=== PATIENT | male | born 1980 | race Caucasian/White ===

== ENCOUNTER 2017-03-16 06:28 | Emergency (ER) | payer OTHER ==
[2017-03-16 06:28] VITALS: BMI 25.9
[2017-03-16 07:02] VITALS: BP 127/81; PULSE 82; RESP 20; TEMP 97.8; O2SAT 97
--- NOTE | 2017-03-16 07:10 | C.PDOC ---
History Of Present Illness 36 y/o male presents to the ED with complains of runny nose, sneezing, itchy eyes, sore throat and nonproductive cough for the past few days. Pt with history of asthma, ran out of Ventolin inhaler. Pt denies SOB, fever, chest pain , vomiting, or any other complaints. Time Seen by Provider: 03/16/17 07:03 Chief Complaint (Nursing): Cough, Cold, Congestion History Per: Patient History/Exam Limitations: no limitations Onset/Duration Of Symptoms: Days Current Symptoms Are (Timing): Still Present Location Of Pain: Throat Sick Contacts (Context): None Associated Symptoms: Sore Throat, Cough. denies: Fever, Vomiting Ear Symptoms: Bilateral: None Severity: Mild Recent travel outside of the [place]: No Past Medical History Reviewed: Historical Data, Nursing Documentation, Vital Signs Vital Signs: Last Vital Signs Temp 97.8 F 03/16/17 06:37 Pulse 82 03/16/17 06:37 Resp 20 03/16/17 06:37 BP 127/81 03/16/17 06:37 Pulse Ox 97 03/16/17 07:29 - Medical History PMH: Asthma, Diverticulitis Family History: States: Unknown Family Hx - Social History Hx Alcohol Use: Yes Hx Substance Use: No - Immunization History Hx Tetanus Toxoid Vaccination: No Hx Influenza Vaccination: No Hx Pneumococcal Vaccination: No Review Of Systems Except As Marked, All Systems Reviewed And Found Negative. Constitutional: Negative for: Fever Eyes: Positive for: Other (itchy eyes) ENT: Positive for: Nose Discharge, Throat Pain, Other (sneezing). Negative for : Ear Pain Cardiovascular: Negative for: Chest Pain Respiratory: Positive for: Cough. Negative for: Shortness of Breath Gastrointestinal: Negative for: Vomiting Physical Exam - Physical Exam Appears: Non-toxic, No Acute Distress Skin: Warm, Dry, No Rash Head: Atraumatic, Normacephalic Eye(s): bilateral: Normal Inspection, PERRL, EOMI Ear(s): Bilateral: Normal Nose: Discharge (clear) Throat: Normal, No Erythema Neck: Normal, Normal ROM, Supple Chest: Symmetrical Cardiovascular: Rhythm Regular, No Murmur Respiratory: Normal Breath Sounds, No Accessory Muscle Use, No Rales, No Rhonchi , No Wheezing Extremity: Bilateral: Atraumatic Neurological/Psych: Oriented x3, Normal Speech ED Course And Treatment O2 Sat by Pulse Oximetry: 97 (room air) Pulse Ox Interpretation: Normal Medical Decision Making Medical Decision Making: Patient appears well nontoxic and in no acute distress. Lungs clear bilaterally without rales, rhonchi or wheezing. Patient has clear rhinorrhea. Symptoms related to allergic rhinitis. Recommend daily antihistamine. Disposition Counseled Patient/Family Regarding: Diagnosis, Need For Followup, Rx Given - Disposition Referrals: [facility] [Outside] [facility] [Outside] Disposition: HOME/ ROUTINE Disposition Time: 07:08 Condition: STABLE Additional Instructions: [place] por favor la medicina alrgica diaria maxx corina claritin, zyrtec o rosalina Use spray nasal todos los baer Use ventolin segn sea necesario Prescriptions: Albuterol HFA [Ventolin HFA 90 mcg/actuation (8 g)] 1 puff IH Q4 #1 puff Fluticasone Propionate [Flonase] 1 spray NS DAILY #1 bottle Instructions: Allergic Rhinitis (ED) Print Language: SETSWANA - POA Present On Arrival: None - Clinical Impression Clinical Impression: Allergic rhinitis - 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 - Scribe Statement The provider has reviewed the documentation as recorded by the Scribkurtis sainz All medical record entries made by the Scribe were at my direction and personally dictated by me. I have reviewed the chart and agree that the record accurately reflects my personal performance of the history, physical exam, medical decision making, and the department course for this patient. I have also personally directed, reviewed, and agree with the discharge instructions and disposition.
== END 2017-03-16 07:23 | disposition home or self-care (01) ==
LOC: C.ER 06:28
DX: J30.9 Allergic rhinitis, unspecified (principal)

== ENCOUNTER 2017-07-23 18:23 | Emergency (ER) | payer SELFPAY ==
[2017-07-23 18:39] VITALS: BMI 26.6
[2017-07-23 18:42] VITALS: BP 131/81; PULSE 84; TEMP 98.5; O2SAT 97
[2017-07-23] MEDS ORDERED: Albuterol-Ipratrop 3 mg / 0.5 (3 ml) UD INH STA (19:51)
[2017-07-23] MEDS ORDERED: Albuterol-Ipratrop 3 mg / 0.5 (3 ml) UD ONE (19:54)
--- NOTE | 2017-07-23 20:23 | C.PDOC ---
History Of Present Illness 36yo male with past medical history of asthma, presents to the ED for evaluation of cough, chest congestion and sore throat for the past week. Patient states he took Dayquil for his symptoms with no relief. He also states he used his albuterol inhaler with no relief; of note, patient states he has run out of his inhaler. He denies any other medical complaints. Time Seen by Provider: 07/23/17 19:36 Chief Complaint (Nursing): Cough, Cold, Congestion History Per: Patient History/Exam Limitations: no limitations Onset/Duration Of Symptoms: Days (1week) Current Symptoms Are (Timing): Still Present Location Of Pain: Throat Associated Symptoms: Sore Throat, Cough Past Medical History Reviewed: Historical Data, Nursing Documentation, Vital Signs Vital Signs: Last Vital Signs Temp 98.5 F 07/23/17 18:39 Pulse 84 07/23/17 18:39 Resp 20 07/23/17 20:28 BP 131/81 07/23/17 18:39 Pulse Ox 97 07/23/17 20:51 - Medical History PMH: Asthma, Diverticulitis Denies: Colonic Polyps Surgical History: No Surg Hx Family History: States: Unknown Family Hx - Social History Hx Alcohol Use: Yes Hx Substance Use: No - Immunization History Hx Tetanus Toxoid Vaccination: No Hx Influenza Vaccination: No Hx Pneumococcal Vaccination: No Review Of Systems Constitutional: Negative for: Fever ENT: Positive for: Nose Congestion, Throat Pain Respiratory: Positive for: Cough, Sputum Physical Exam - Physical Exam Appears: Non-toxic, No Acute Distress Skin: Warm, Dry Eye(s): bilateral: Normal Inspection Ear(s): Bilateral: Normal Oral Mucosa: Moist Throat: Normal, No Erythema, No Exudate Neck: Supple Cardiovascular: Rhythm Regular Respiratory: Decreased Breath Sounds (mild decreased breath sounds), Wheezing ( mild expiratory ) Neurological/Psych: Oriented x3, Normal Speech, Normal Cognition ED Course And Treatment O2 Sat by Pulse Oximetry: 97 (RA) Pulse Ox Interpretation: Normal Medical Decision Making Medical Decision Making: Impression: 36yo with history of asthma, presents with 1 week of cough, cold and congestion Plan: -- Duoneb 3ml INH -- Prednisone 30mg PO 2019 Patient reports improvement in his symptoms and is stable for discharge home. Patient advised to follow up with his PCP. Disposition Counseled Patient/Family Regarding: Diagnosis, Need For Followup - Disposition Disposition: HOME/ ROUTINE Disposition Time: 20:20 Condition: GOOD Additional Instructions: Please follow up with PMD or in clinic Take meds as directed Increase fluids Return to ER if worse Prescriptions: Albuterol HFA [Ventolin HFA 90 mcg/actuation (8 g)] 2 puff IH [id number] #1 inhaler Benzonatate [Tessalon Perles] 100 mg PO TID #20 sgl predniSONE [Prednisone] 40 mg PO DAILY #8 tab Forms: [employer] (Nauruan) Print Language: UZBEK - Clinical Impression Clinical Impression: Upper respiratory infection, Asthma exacerbation - 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 - Scribe Statement The provider has reviewed the documentation as recorded by the Clara Teran All medical record entries made by the Clara were at my direction and personally dictated by me. I have reviewed the chart and agree that the record accurately reflects my personal performance of the history, physical exam, medical decision making, and the department course for this patient. I have also personally directed, reviewed, and agree with the discharge instructions and disposition.
[2017-07-23 20:28] VITALS: RESP 20
== END 2017-07-23 20:28 | disposition home or self-care (01) ==
LOC: C.ER 18:23
DX: J06.9 Acute upper respiratory infection, unspecified (principal); J45.901 Unspecified asthma with (acute) exacerbation

== ENCOUNTER 2018-03-15 09:16 | Emergency (ER) | payer OTHER ==
[2018-03-15 09:16] VITALS: BMI 26.6
[2018-03-15 09:47] VITALS: RESP 18
--- NOTE | 2018-03-15 11:06 | C.PDOC ---
History Of Present Illness 37 y/o male presents to the ED with 5 day history of bodyaches, nasal congestion , and sneezing. Denies any associated vomiting or diarrhea. No known sick contacts. Eyes are itchy and watery as well. Time Seen by Provider: 03/15/18 10:32 Chief Complaint (Nursing): Flu-like Symptoms History Per: Patient History/Exam Limitations: no limitations Onset/Duration Of Symptoms: Days Current Symptoms Are (Timing): Still Present Past Medical History Reviewed: Historical Data, Nursing Documentation, Vital Signs Vital Signs: Last Vital Signs Temp 98.3 F 03/15/18 11:13 Pulse 84 03/15/18 11:13 Resp 18 03/15/18 11:13 BP 116/78 03/15/18 11:13 Pulse Ox 98 03/15/18 11:13 - Medical History PMH: Asthma, Diverticulitis Denies: Colonic Polyps Surgical History: No Surg Hx Family History: States: Unknown Family Hx - Social History Hx Alcohol Use: Yes Hx Substance Use: No - Immunization History Hx Tetanus Toxoid Vaccination: No Hx Influenza Vaccination: No Hx Pneumococcal Vaccination: No Review Of Systems Except As Marked, All Systems Reviewed And Found Negative. Constitutional: Positive for: Other (Bodyaches) ENT: Positive for: Nose Discharge, Nose Congestion Physical Exam - Physical Exam Appears: Non-toxic, No Acute Distress Skin: Warm, Dry, No Rash Head: Atraumatic, Normacephalic Eye(s): bilateral: Normal Inspection, PERRL, EOMI Nose: Normal Oral Mucosa: Moist Throat: Normal, No Erythema, No Exudate Neck: Normal ROM, Supple Cardiovascular: Rhythm Regular, No Murmur Respiratory: Normal Breath Sounds, No Accessory Muscle Use, No Rales, No Rhonchi , No Wheezing Extremity: Bilateral: Atraumatic, Normal Color And Temperature, Normal ROM Neurological/Psych: Oriented x3, Normal Speech ED Course And Treatment O2 Sat by Pulse Oximetry: 96 (RA) Pulse Ox Interpretation: Normal Medical Decision Making Medical Decision Making: Impression: Seasonal allergies Initial Plan: --Claritin 10 mg PO --Motrin 600 mg PO --Sudafed 30 mg PO Patient is medically stable, will d/c home with prescriptions for Claritin, Naprosyn, and Sudafed. Advised to follow up with primary doctor in 1-2 days. Disposition Counseled Patient/Family Regarding: Diagnosis, Need For Followup, Rx Given - Disposition Referrals: [facility] [Outside] Disposition: HOME/ ROUTINE Disposition Time: 11:04 Condition: STABLE Additional Instructions: follow up with your doctor in 2 days call to make an appointment take medications as prescribed return to ER if symptoms worsens or progress Prescriptions: Loratadine [Claritin] 10 mg PO DAILY PRN #15 tab PRN Reason: Other Naproxen [Naprosyn] 500 mg PO BID PRN #16 tab PRN Reason: Pain, Moderate (4-7) Pseudoephedrine HCl [Sudafed] 30 mg PO TID PRN #20 tablet PRN Reason: Cough And Congestion Instructions: Seasonal Allergies (DC) Forms: Gen Discharge Inst Russian, [employer] Connect (Russian), Work Excuse - Clinical Impression Clinical Impression: Seasonal allergies - Scribe Statement The provider has reviewed the documentation as recorded by the Scribe (Trena Atwood) Provider Attestation: All medical record entries made by the Scribe were at my direction and personally dictated by me. I have reviewed the chart and agree that the record accurately reflects my personal performance of the history, physical exam, medical decision making, and the department course for this patient. I have also personally directed, reviewed, and agree with the discharge instructions and disposition.
[2018-03-15 11:15] VITALS: BP 116/78; PULSE 84; TEMP 98.3
[2018-03-15 12:13] VITALS: O2SAT 96
== END 2018-03-15 11:13 | disposition home or self-care (01) ==
LOC: C.ER 09:16
DX: J30.2 Other seasonal allergic rhinitis (principal); F17.210 Nicotine dependence, cigarettes, uncomplicated

== ENCOUNTER 2018-08-11 05:14 | Emergency (ER) | payer OTHER ==
[2018-08-11 05:14] VITALS: BMI 26.6
[2018-08-11 05:35] VITALS: O2SAT 98
[2018-08-11] MEDS ORDERED: Sodium Chloride 0.9% 500 ML IV ONE ×2 (05:41→05:53)
--- NOTE | 2018-08-11 05:47 | C.PDOC ---
History Of Present Illness 38 year old male with PMHx diverticulitis presents to the ED c/o lower abdominal pain since last night. Patient states this pain feels similar to that. Patient denies fever, chills, nausea, vomit, diarrhea, GI bleed, blood in the stool, numbness, weakness. Time Seen by Provider: 08/11/18 05:37 Chief Complaint (Nursing): Abdominal Pain History Per: Patient History/Exam Limitations: no limitations Onset/Duration Of Symptoms: Days Current Symptoms Are (Timing): Still Present Location Of Pain/Discomfort: RLQ, LLQ Radiation Of Pain To:: None Quality Of Discomfort: "Pain" Associated Symptoms: denies: Nausea, Vomiting, Diarrhea, Urinary Symptoms Last Bowel Movement: Yesterday Recent travel outside of the [place]: No Additional History Per: Patient Past Medical History Reviewed: Historical Data, Nursing Documentation, Vital Signs Vital Signs: Last Vital Signs Temp 99.7 F H 08/11/18 05:25 Pulse 94 H 08/11/18 05:25 Resp 16 08/11/18 05:25 BP 133/86 08/11/18 05:25 Pulse Ox 98 08/11/18 05:25 - Medical History PMH: Asthma, Diverticulitis Denies: Colonic Polyps Surgical History: No Surg Hx Family History: States: Unknown Family Hx - Social History Hx Alcohol Use: Yes Hx Substance Use: No - Immunization History Hx Tetanus Toxoid Vaccination: No Hx Influenza Vaccination: No Hx Pneumococcal Vaccination: No Review Of Systems Constitutional: Negative for: Fever, Chills Cardiovascular: Negative for: Chest Pain Respiratory: Negative for: Shortness of Breath Gastrointestinal: Positive for: Abdominal Pain. Negative for: Nausea, Vomiting, Diarrhea Genitourinary: Negative for: Dysuria, Hematuria Musculoskeletal: Negative for: Back Pain Neurological: Negative for: Weakness, Numbness Physical Exam - Physical Exam Appears: Non-toxic, No Acute Distress Skin: Normal Color, Warm, Dry Head: Atraumatic, Normacephalic Eye(s): bilateral: Normal Inspection Neck: Normal ROM, Supple Chest: Symmetrical Cardiovascular: Rhythm Regular Respiratory: Normal Breath Sounds, No Rales, No Rhonchi, No Wheezing Gastrointestinal/Abdominal: Bowel Sounds (active), Soft, Tenderness (bilateral lower abdomen ), No Guarding, No Rebound Back: No CVA Tenderness Extremity: Normal ROM, No Tenderness, No Swelling Neurological/Psych: Oriented x3, Normal Speech, Normal Cognition Gait: Steady ED Course And Treatment - Laboratory Results Result Diagrams: 08/11/18 05:56 08/11/18 05:56 O2 Sat by Pulse Oximetry: 98 (ON RA) Pulse Ox Interpretation: Normal Progress Note: Plan: - CT abd/pelvis. - Labs. - IV fluids. - Toradol 15 mg IM. - UA. 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 - Scribe Statement The provider has reviewed the documentation as recorded by the Scribe Phil Sanford All medical record entries made by the Scribe were at my direction and personally dictated by me. I have reviewed the chart and agree that the record accurately reflects my personal performance of the history, physical exam, medical decision making, and the department course for this patient. I have also personally directed, reviewed, and agree with the discharge instructions and disposition. Physician Patient Turnover Patient Signed Over To: Piedad Pham Handoff Comments: Pending Abd CT and reeval
[2018-08-11 05:59] LABS: BASO % 0.2 % (0.0-2.0); EOS # 0.1 K/uL (0.0-0.7); EOS % 0.5 % (0.0-4.0); HEMOGLOBIN 16.1 g/dL (12.0-18.0); LYMPH # 2.6 K/uL (1.0-4.3); LYMPH % 18.2 % (20.0-40.0); MEAN CELL VOLUME 86.6 fL (80.0-94.0); MEAN CORPUSCULAR HEMOGLOBIN 30.2 pg (27.0-31.0); MEAN CORPUSCULAR HGB CONC 34.8 g/dL (33.0-37.0); MEAN PLATELET VOLUME 8.4 fL (7.2-11.7); MONO # 1.1 K/uL (0.0-0.8); MONO % 7.6 % (0.0-10.0); NEUT # 10.7 K/uL (1.8-7.0); NEUT % 73.5 % (50.0-75.0); NRBC % 0.1 % (0.0-2.0); RBC 5.34 Mil/uL (4.40-5.90); RED CELL DISTRIBUTION WIDTH 12.5 % (11.5-14.5); WHITE BLOOD COUNT 14.5 K/uL (4.8-10.8)
[2018-08-11 06:10] LABS: ALB/GLOB RATIO 1.5 (1.0-2.1); ALBUMIN 4.5 g/dL (3.5-5.0); ALT/SGPT 45 U/L (21-72); AST/SGOT 31 U/L (17-59); BLOOD UREA NITROGEN 17 mg/dL (9-20); CALCIUM 9.7 mg/dl (8.6-10.4); GFR NON-AFRICAN AMERICAN > 60; LIPASE 55 U/L (23-300)
[2018-08-11] MEDS ORDERED: Iodixanol 320 MG/ML 100 ML BOTTLE IV ONE (07:28)
[2018-08-11 08:14] LABS: URINE BACTERIA RARE (<OCC); URINE BILIRUBIN NEGATIVE (NEGATIVE); URINE BLOOD NEGATIVE (NEGATIVE); URINE CLARITY Clear (Clear); URINE COLOR Yellow (YELLOW); URINE GLUCOSE (UA) NORMAL (Normal); URINE LEUKOCYTE ESTERASE NEG Leu/uL (Negative); URINE PROTEIN NEGATIVE (NEGATIVE); URINE UROBILINOGEN NORMAL mg/dL (0.2-1.0)
--- NOTE | 2018-08-11 09:56 | CT ---
Date of service: 08/11/2018 PROCEDURE: CT Abdomen and Pelvis. HISTORY: Abdominal pain COMPARISON: Comparison made with prior CT scan abdomen pelvis 05/30/2016.. TECHNIQUE: Contiguous axial images of the abdomen and pelvis. Coronal and Sagittal reformats generated. This CT exam was performed using one or more of the following dose reduction techniques: Automated exposure control, adjustment of the mA and/or kV according to patient size, and/or use of iterative reconstruction technique. Radiation dose: Contrast dose: 100 cc Visipaque 320 Radiation dose: Total exam DLP = 387.09 mGy-cm. FINDINGS: LOWER THORAX: Mild passive/dependent type atelectasis with questionable trace effusions. No evidence of basilar pneumothorax. Heart size within range of normal. Small hiatal hernia. LIVER: Liver is upper limits of normal in size measuring nearly 19 cm in CC dimension. GALLBLADDER AND BILE DUCTS: Gallbladder physiologically distended. No evidence of intraluminal gallbladder calculi. PANCREAS: Unremarkable. No mass. No ductal dilatation. SPLEEN: Unremarkable. No splenomegaly. ADRENALS: Unremarkable. KIDNEYS AND URETERS: Unremarkable. No stone or hydronephrosis. BLADDER: Urinary bladder is collapsed which in part accounts for thick-walled appearance. Muscular hypertrophy presumably contributes. Correlation with urinalysis recommended to exclude UTI. The the REPRODUCTIVE: Prostate gland is unremarkable prostate gland measures approximate 4 cm in transverse dimension. APPENDIX: Unremarkable. BOWEL: Evaluation of the bowel is somewhat limited due to the lack of oral contrast material. The stomach is incompletely distended. Visualized loops of small bowel exhibit normal contour and caliber. No evidence of acute mechanical small bowel obstruction. Stool and air seen throughout the large bowel. Scattered colonic diverticula seen along the distal descending and sigmoid colon. There is a localized area of moderate wall thickening involving a short segment of the distal descending/proximal sigmoid colon junction with surrounding mesenteric infiltration. Findings are consistent with an acute diverticulitis.. PERITONEUM: As above. No fluid collection. No free air. LYMPH NODES: Unremarkable. No enlarged lymph nodes. VASCULATURE: Unremarkable. No aortic aneurysm. BONES: No fracture or destructive lesion. OTHER FINDINGS: None. IMPRESSION: With thumb diverticulosis and diverticulitis involving a short segment of the distal descending/sigmoid colon junction as above. No evidence of drainable/loculated fluid collections. No gross free intraperitoneal air. Minimal bibasilar atelectasis with questionable trace bilateral effusions.
[2018-08-11] MEDS ORDERED: Tmp-Smz 800 mg-160 mg DS Tab PO SCH (10:45)
[2018-08-11] MEDS ORDERED: Tmp-Smz 800 mg-160 mg DS Tab ONE (10:53)
[2018-08-11 10:55] VITALS: BP 127/89; PULSE 81; RESP 17; TEMP 98.9
== END 2018-08-11 10:54 | disposition home or self-care (01) ==
LOC: C.ER 05:14
DX: K57.32 Diverticulitis of large intestine without perforation or abscess without bleeding (principal); R10.31 Right lower quadrant pain
CPT/HCPCS: 74177; 80053; 81001; 83690; 85025; 96372; 99285; J1885; J7040; Q9967

== ENCOUNTER 2018-08-13 14:29 | Emergency (ER) | payer OTHER ==
[2018-08-13 14:29] VITALS: BMI 26.6
[2018-08-13] MEDS ORDERED: Morphine 4 MG/ML VIAL ONE (16:04)
[2018-08-13] MEDS ORDERED: Sodium Chloride 0.9% 1,000 ML ONE (16:05)
[2018-08-13] MEDS ORDERED: Sodium Chloride 0.9% 1,000 ML IV ONE (16:09)
--- NOTE | 2018-08-13 16:11 | C.PDOC ---
History Of Present Illness 38 y/o male presents to ED with c/o left sided abdominal pain radiating to back worsening for 2 days. Patient was seen at ED on 08/11/18 for similar complaints and diagnosed with diverticulitis, discharged with medication. Patient states he has been compliant with medications and has now developed rash diffusely through body. Patient denies sob, chest pain, vomiting, diarrhea, fever, chills or any other complaints at this time. Time Seen by Provider: 08/13/18 15:30 Chief Complaint (Nursing): Abdominal Pain History Per: Patient History/Exam Limitations: no limitations Onset/Duration Of Symptoms: Days, Waxing/Waning Location Of Pain/Discomfort: LLQ Past Medical History Reviewed: Historical Data, Nursing Documentation, Vital Signs Vital Signs: Last Vital Signs Temp 98.3 F 08/13/18 14:48 Pulse 77 08/13/18 14:48 Resp 20 08/13/18 14:48 BP 125/87 08/13/18 14:48 Pulse Ox 98 08/13/18 14:48 - Medical History PMH: Asthma, Diverticulitis Surgical History: No Surg Hx Family History: States: No Known Family Hx - Social History Hx Alcohol Use: Yes Hx Substance Use: No - Immunization History Hx Tetanus Toxoid Vaccination: No Hx Influenza Vaccination: No Hx Pneumococcal Vaccination: No Review Of Systems Constitutional: Negative for: Fever, Chills Cardiovascular: Negative for: Chest Pain Respiratory: Negative for: Shortness of Breath Gastrointestinal: Positive for: Abdominal Pain. Negative for: Nausea, Vomiting, Diarrhea Skin: Positive for: Rash Physical Exam - Physical Exam Appears: Non-toxic, No Acute Distress Skin: Warm, Dry, Rash (Urticarial rash diffuse through body) Head: Atraumatic, Normacephalic Eye(s): bilateral: Normal Inspection Oral Mucosa: Moist Tongue: Normal Appearing, No Swelling Lips: Normal Appearing, No Swelling Throat: Normal, No Erythema, No Exudate Neck: Supple Cardiovascular: Rhythm Regular Respiratory: Normal Breath Sounds, No Rales, No Rhonchi, No Wheezing Gastrointestinal/Abdominal: Soft, Tenderness (Moderate LLQ), No Guarding, No Rebound Back: No CVA Tenderness Neurological/Psych: Oriented x3, Normal Speech, Normal Cognition ED Course And Treatment - Laboratory Results Result Diagrams: 08/13/18 16:15 08/13/18 16:15 O2 Sat by Pulse Oximetry: 98 (RA) Pulse Ox Interpretation: Normal Medical Decision Making Medical Decision Making: Old records reviewed the patient was recently seen in the ED for diverticulitis and was discharged home with Flagyl and Bactrim. On re-exam, the patient reports improvement of symptoms. Lungs are CTA, heart is RRR, abdomen is soft, non- tender and the patient is tolerating PO well. Follow up with the medical doctor within 1-2 days. Return if worsened. Disposition - Disposition Referrals: [facility] [Outside] Disposition: HOME/ ROUTINE Disposition Time: 18:32 Condition: GOOD Additional Instructions: Follow up with the medical doctor within 1-2 days. Return if worsened. 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 - Scribe Statement The provider has reviewed the documentation as recorded by the Scribe Mya Sultana All medical record entries made by the Clara were at my direction and personall y dictated by me. I have reviewed the chart and agree that the record accurately reflects my personal performance of the history, physical exam, medical decision making, and the department course for this patient. I have also personally directed, reviewed, and agree with the discharge instructions and disposition.
[2018-08-13 16:24] LABS: BASO # 0.1 K/uL (0.0-0.2); BASO % 0.4 % (0.0-2.0); EOS # 0.2 K/uL (0.0-0.7); EOS % 1.9 % (0.0-4.0); HEMOGLOBIN 15.6 g/dL (12.0-18.0); LYMPH # 2.4 K/uL (1.0-4.3); LYMPH % 20.2 % (20.0-40.0); MEAN CORPUSCULAR HEMOGLOBIN 30.2 pg (27.0-31.0); MEAN CORPUSCULAR HGB CONC 34.3 g/dL (33.0-37.0); MEAN PLATELET VOLUME 8.4 fL (7.2-11.7); MONO # 0.8 K/uL (0.0-0.8); MONO % 6.6 % (0.0-10.0); NEUT # 8.3 K/uL (1.8-7.0); NEUT % 70.9 % (50.0-75.0); RBC 5.18 Mil/uL (4.40-5.90); RED CELL DISTRIBUTION WIDTH 12.6 % (11.5-14.5); WHITE BLOOD COUNT 11.7 K/uL (4.8-10.8)
[2018-08-13 16:25] LABS: SQUAMOUS EPITHIAL < 1 /hpf (0-5); URINE BILIRUBIN NEGATIVE (NEGATIVE); URINE BLOOD 3+ (NEGATIVE); URINE CLARITY Clear (Clear); URINE COLOR Amber (YELLOW); URINE GLUCOSE (UA) NORMAL (Normal); URINE LEUKOCYTE ESTERASE 1+ Leu/uL (Negative); URINE PROTEIN 2+ mg/dL (NEGATIVE)
[2018-08-13 16:43] LABS: ALB/GLOB RATIO 1.5 (1.0-2.1); ALBUMIN 4.8 g/dL (3.5-5.0); ALT/SGPT 34 U/L (21-72); AST/SGOT 27 U/L (17-59); BLOOD UREA NITROGEN 14 mg/dL (9-20); CALCIUM 10.2 mg/dl (8.6-10.4); GFR NON-AFRICAN AMERICAN > 60; LIPASE 28 U/L (23-300)
[2018-08-13] MEDS ORDERED: Iohexol 350mg/ml 100 ML ONE (17:03)
--- NOTE | 2018-08-13 17:13 | RAD ---
HISTORY: abd pain COMPARISON: Chest x-ray performed 03/25/16 TECHNIQUE: Chest, one view. FINDINGS: Examination limited by habitus. LUNGS: Mild infiltrate/atelectasis right middle lobe. Please note that chest x-ray has limited sensitivity for the detection of pulmonary masses. PLEURA: No significant pleural effusion identified. No definite pneumothorax . CARDIOVASCULAR: Heart size appears within normal limits. OSSEOUS STRUCTURES: No acute osseous abnormality identified. VISUALIZED UPPER ABDOMEN: Unremarkable. OTHER FINDINGS: None. IMPRESSION: Mild infiltrate/atelectasis, right middle lobe.
--- NOTE | 2018-08-13 17:31 | CT ---
Date of service: 08/13/2018 PROCEDURE: CT Abdomen and Pelvis with contrast HISTORY: LLQ pain worse, hx of diverticulitis r/o perf COMPARISON: CT abdomen and pelvis with IV contrast performed 08/11/18 TECHNIQUE: Contrast dose: 100 mL Visipaque IV Radiation dose: Total exam DLP = 410.53 mGy-cm. This CT exam was performed using one or more of the following dose reduction techniques: Automated exposure control, adjustment of the mA and/or kV according to patient size, and/or use of iterative reconstruction technique. FINDINGS: LOWER THORAX: No visible consolidation, pleural effusion, or pneumothorax. LIVER: Unremarkable. GALLBLADDER AND BILE DUCTS: Unremarkable. PANCREAS: Unremarkable. SPLEEN: Unremarkable. ADRENALS: Unremarkable. KIDNEYS AND URETERS: Mild left hydroureter/hydronephrosis and 3 mm calculus just distal to the left UVJ consistent with recently passed stone. No right-sided hydronephrosis or obstructing calculus. The kidneys enhance symmetrically. VASCULATURE: No aortic aneurysm. BOWEL: Stomach is nondistended. Lack of oral contrast limits evaluation for bowel pathology. Bowel loops appear within normal limits of caliber without evidence of obstruction. Marked wall thickening and adjacent extensive inflammatory changes involving a segment of the rectosigmoid colon consistent with acute diverticulitis. APPENDIX: The appendix appears within normal limits of caliber. No secondary signs of acute appendicitis. PERITONEUM: No significant free fluid. No definite free air. LYMPH NODES: No bulky adenopathy identified. BLADDER: Unremarkable. REPRODUCTIVE: Unremarkable. BONES: No acute osseous abnormality is detected. OTHER FINDINGS: None. IMPRESSION: Interval development of mild left hydroureter/hydronephrosis and 3 mm calculus just distal to the left UVJ consistent with recently passed stone. Marked wall thickening and adjacent extensive inflammatory changes involving a segment of the rectosigmoid colon consistent with acute diverticulitis.
[2018-08-13 17:45] VITALS: TEMP 98.7
[2018-08-13 18:55] VITALS: BP 128/80; PULSE 82; RESP 18; O2SAT 100
== END 2018-08-13 18:55 | disposition home or self-care (01) ==
LOC: C.ER 14:29
DX: N23 Unspecified renal colic (principal); K57.92 Diverticulitis of intestine, part unspecified, without perforation or abscess without bleeding
CPT/HCPCS: 71045; 74177; 80053; 81001; 83690; 85025; 96361; 96374; 96375; 99284; J1885; J2270; J2405; J7030; Q9967

== ENCOUNTER 2018-08-14 09:43 | Emergency (ER) | payer OTHER ==
[2018-08-14 09:44] VITALS: BMI 26.6
== END 2018-08-14 10:13 | disposition left against medical advice (07) ==
LOC: C.ER 09:43
DX: Z02.89 Encounter for other administrative examinations (principal); R52 Pain, unspecified

== ENCOUNTER 2018-08-14 15:57 | Emergency (ER) | payer OTHER ==
[2018-08-14 15:57] VITALS: BMI 26.6
[2018-08-14 16:12] VITALS: RESP 18; TEMP 98.9; O2SAT 100
[2018-08-14] MEDS ORDERED: Lidocaine 112 MG in Sodium Chloride 0.9% 100 ML IV STA (17:38)
[2018-08-14] MEDS ORDERED: Sodium Chloride 0.9% 1,000 ML IV STA (17:38)
--- NOTE | 2018-08-14 17:41 | C.PDOC ---
History Of Present Illness 38 y/o male presents to the ED with persistent left flank pain, patient seen here 08/11 and 08/[address] imaging demonstrated + diverticulitis, left renal stone. Patient states allergic reaction from the bactrim and flagyl on 08/11. Treatment was changed to Cipro however patient has been non-compliant with the cipro. No improvement with NSAIDS. Denies any fever, nausea, or vomiting. Pain is described as unchanged from prior. <Jessika Walls - Last Filed: 08/14/18 19:00> History Per: Patient History/Exam Limitations: no limitations Onset/Duration Of Symptoms: Days Current Symptoms Are (Timing): Worse <Jessika Walls - Last Filed: 08/14/18 19:00> <Malika Miller - Last Filed: 08/14/18 19:46> Time Seen by Provider: 08/14/18 17:21 Chief Complaint (Nursing): Back Pain Past Medical History Reviewed: Historical Data, Nursing Documentation, Vital Signs Vital Signs: Last Vital Signs Temp 98.9 F 08/14/18 16:10 Pulse 75 08/14/18 16:10 Resp 18 08/14/18 16:10 BP 124/79 08/14/18 16:10 Pulse Ox 100 08/14/18 16:10 - Medical History PMH: Asthma, Diverticulitis Denies: Colonic Polyps Family History: States: Unknown Family Hx - Social History Hx Alcohol Use: Yes Hx Substance Use: No - Immunization History Hx Tetanus Toxoid Vaccination: No Hx Influenza Vaccination: No Hx Pneumococcal Vaccination: No <Jessika Walls - Last Filed: 08/14/18 19:00> Vital Signs: Last Vital Signs Temp 98.9 F 08/14/18 16:10 Pulse 75 08/14/18 16:10 Resp 18 08/14/18 16:10 BP 124/79 08/14/18 16:10 Pulse Ox 100 08/14/18 19:05 <Malika Miller - Last Filed: 08/14/18 19:46> Review Of Systems Except As Marked, All Systems Reviewed And Found Negative. Constitutional: Negative for: Fever, Chills Cardiovascular: Negative for: Chest Pain Respiratory: Negative for: Shortness of Breath Gastrointestinal: Positive for: Other (persistent L flank pain). Negative for: Nausea, Vomiting Genitourinary: Negative for: Dysuria, Hematuria <Jessika Walls - Last Filed: 08/14/18 19:00> Physical Exam - Physical Exam Appears: Non-toxic, In Acute Distress (moderate distress), Other (Writhing on stretcher) Skin: Warm, Dry Head: Atraumatic, Normacephalic Eye(s): bilateral: Normal Inspection, PERRL, EOMI Oral Mucosa: Moist Neck: Normal ROM, Supple Chest: Symmetrical Cardiovascular: Rhythm Regular, No Murmur Respiratory: Normal Breath Sounds, No Accessory Muscle Use, Other (NARD) Gastrointestinal/Abdominal: Soft, No Tenderness, No Distention, No Guarding Back: CVA Tenderness (left-sided), No Vertebral Tenderness Extremity: Bilateral: Atraumatic, Normal ROM Pulses: Left Dorsalis Pedis: Normal, Right Dorsalis Pedis: Normal Neurological/Psych: Oriented x3, Normal Speech <Jessika Walls Last Filed: 08/14/18 19:00> ED Course And Treatment - Laboratory Results Result Diagrams: 08/14/18 18:07 08/14/18 18:07 O2 Sat by Pulse Oximetry: 100 (RA) Pulse Ox Interpretation: Normal <Jessika Walls Last Filed: 08/14/18 19:00> - Laboratory Results Result Diagrams: 08/14/18 18:07 08/14/18 18:07 Lab Interpretation: Normal (markedly improved compared to prior) Reevaluation Time: 19:36 Reassessment Condition: Improved (Abdomen still with mild left sided tenderness but no guarding or rebound.) <Malika Miller - Last Filed: 08/14/18 19:46> Progress - Data Reviewed Data Reviewed: Lab, Old records <Jessika Walls - Last Filed: 08/14/18 19:00> Medical Decision Making Medical Decision Making: Impression: Left renal stones, persistent flank pain, noncompliant with outpatient antibiotics Initial orders placed: --Labs --IV fluids --Tylenol 975 mg PO --Toradol 30 mg IVP --Flomax 0.4 mg PO --Reassess and dispo MULT ABD/P CT RECENT, WILL DEFER DUE TO CONCERN RADIATION OVEREXPOSURE. NO SIGNS ACUTE ABDOMEN ON EXAM. REPEAT LABS, PAIN RX, REASSES. <Jessika Walls - Last Filed: 08/14/18 19:00> Medical Decision Making: Review of CT from yesterday showing left sided hydronephrosis consistent with recently passed stone and marked thickening or recto sigmoid consistent with acute diverticulitis. Labs done tonight show considerable improvement and urine has cleared. Patient advised to continue the Cipro he was prescribed yesterday and to follow a soft bland diet. <Malika Miller - Last Filed: 08/14/18 19:46> Disposition Counseled Patient/Family Regarding: Studies Performed, Diagnosis - Disposition Disposition Time: 19:00 <Jessika Walls - Last Filed: 08/14/18 19:00> Counseled Patient/Family Regarding: Studies Performed, Diagnosis, Need For Followup, Rx Given <Malika Miller - Last Filed: 08/14/18 19:46> - Disposition Referrals: [facility] at [facility] [Outside] Condition: IMPROVED Prescriptions: Tamsulosin [Flomax] 0.4 mg PO DAILY #30 cap Instructions: Renal Colic, Diverticulitis Forms: [employer] (Setswana) - Clinical Impression Clinical Impression: Renal colic, Rectosigmoid diverticulitis - Scribe Statement The provider has reviewed the documentation as recorded by the Clara Atwood Provider Attestation: All medical record entries made by the Jordenibkurtis were at my direction and personally dictated by me. I have reviewed the chart and agree that the record accurately reflects my personal performance of the history, physical exam, medical decision making, and the department course for this patient. I have also personally directed, reviewed, and agree with the discharge instructions and disposition. <Jessika Walls - Last Filed: 08/14/18 19:00> Physician Patient Turnover Patient Signed Over To: Malika Miller Handoff Comments: DISPO <Jessika Walls - Last Filed: 08/14/18 19:00>
[2018-08-14 18:12] LABS: BASO % 0.3 % (0.0-2.0); EOS # 0.2 K/uL (0.0-0.7); EOS % 2.2 % (0.0-4.0); HEMOGLOBIN 14.1 g/dL (12.0-18.0); LYMPH # 1.7 K/uL (1.0-4.3); LYMPH % 21.9 % (20.0-40.0); MEAN CELL VOLUME 86.5 fL (80.0-94.0); MEAN CORPUSCULAR HEMOGLOBIN 29.9 pg (27.0-31.0); MEAN CORPUSCULAR HGB CONC 34.6 g/dL (33.0-37.0); MEAN PLATELET VOLUME 7.9 fL (7.2-11.7); MONO # 0.5 K/uL (0.0-0.8); MONO % 6.1 % (0.0-10.0); NEUT # 5.5 K/uL (1.8-7.0); NEUT % 69.5 % (50.0-75.0); NRBC % 0.1 % (0.0-2.0); RBC 4.7 Mil/uL (4.40-5.90); RED CELL DISTRIBUTION WIDTH 12.4 % (11.5-14.5)
[2018-08-14] MEDS ORDERED: Sodium Chloride 0.9% 1,000 ML ONE (18:15)
[2018-08-14 18:20] LABS: URINE BILIRUBIN NEGATIVE (NEGATIVE); URINE BLOOD NEGATIVE (NEGATIVE); URINE CLARITY Clear (Clear); URINE COLOR Yellow (YELLOW); URINE GLUCOSE (UA) NORMAL (Normal); URINE LEUKOCYTE ESTERASE NEG Leu/uL (Negative); URINE PROTEIN NEGATIVE (NEGATIVE); URINE UROBILINOGEN NORMAL mg/dL (0.2-1.0)
[2018-08-14 18:22] LABS: BLOOD UREA NITROGEN 15 mg/dL (9-20); CALCIUM 9.4 mg/dl (8.6-10.4); GFR NON-AFRICAN AMERICAN > 60
[2018-08-14 19:56] VITALS: BP 117/73; PULSE 73
== END 2018-08-14 19:55 | disposition home or self-care (01) ==
LOC: C.ER 15:57
DX: N20.0 Calculus of kidney (principal); K57.32 Diverticulitis of large intestine without perforation or abscess without bleeding
CPT/HCPCS: 80048; 81001; 85025; 96361; 96374; 99284; J1885; J2001; J7030

== ENCOUNTER 2018-10-10 17:39 | Emergency (ER) | payer OTHER ==
[2018-10-10 17:39] VITALS: BMI 26.6
[2018-10-10 17:49] VITALS: BP 123/77; PULSE 70; RESP 16; TEMP 98.7; O2SAT 97
--- NOTE | 2018-10-10 18:05 | C.PDOC ---
History Of Present Illness 38 year old male presents to the ED for evaluation of foreign body sensation and muffled hearing in right ear. Patient tried using a Q-tip in his ear and noticed some bleeding. He denies fever, chills, throat pain. Time Seen by Provider: 10/10/18 17:52 Chief Complaint (Nursing): ENT Problem History Per: Patient History/Exam Limitations: None Onset/Duration Of Symptoms: Hrs Current Symptoms Are (Timing): Still Present Quality (Ear): Foreign Body Past Medical History Reviewed: Historical Data, Nursing Documentation, Vital Signs Vital Signs: Last Vital Signs Temp 98.7 F 10/10/18 17:46 Pulse 70 10/10/18 17:46 Resp 16 10/10/18 17:46 BP 123/77 10/10/18 17:46 Pulse Ox 97 10/10/18 17:46 - Medical History PMH: Asthma, Diverticulitis Denies: Colonic Polyps Surgical History: No Surg Hx Family History: States: Unknown Family Hx - Social History Hx Alcohol Use: Yes Hx Substance Use: No - Immunization History Hx Tetanus Toxoid Vaccination: No Hx Influenza Vaccination: No Hx Pneumococcal Vaccination: No Review Of Systems Constitutional: Negative for: Fever, Chills ENT: Positive for: Ear Pain (right), Other (muffled hearing in right ear ) Physical Exam - Physical Exam Appears: Non-toxic, No Acute Distress Skin: Normal Color, Warm, Dry Head: Atraumatic, Normacephalic Eye(s): bilateral: Normal Inspection Ear(s): Left: TM Obscured By Wax (mild ), Right: TM Obscured By Wax, Other (circular mass to the external canal with cerumen behind it. TM unremarkable. swelling in the external canal \) Oral Mucosa: Moist Neck: Normal ROM, Supple Chest: Symmetrical Extremity: Normal ROM, No Swelling Neurological/Psych: Oriented x3, Normal Speech, Normal Cognition Gait: Steady ED Course And Treatment O2 Sat by Pulse Oximetry: 97 (on RA) Pulse Ox Interpretation: Normal Disposition - Disposition Referrals: Atif Mahan MD [Staff Provider] - García Morrison MD [Staff Provider] - Disposition: HOME/ ROUTINE Disposition Time: 18:05 Condition: STABLE Additional Instructions: Follow up with the ENT within 1-2 days as there is a mass in the external canal. Return if worsened. Prescriptions: Neomycin/Polymyxin/Hydrocortis [Cortisporin Otic Susp] 3 drop TOP TID #1 bottle Instructions: Outer Ear Infection (DC) Forms: [facility] (Colombian) - Clinical Impression Clinical Impression: Ear mass, Otitis externa - PA / [employer] / Resident Statement MD/DO has reviewed & agrees with the documentation as recorded. - Scribe Statement The provider has reviewed the documentation as recorded by the Scribe (Hetal Rodriguez) All medical record entries made by the Scribe were at my direction and personall y dictated by me. I have reviewed the chart and agree that the record accurately reflects my personal performance of the history, physical exam, medical decision making, and the department course for this patient. I have also personally directed, reviewed, and agree with the discharge instructions and disposition.
== END 2018-10-10 18:19 | disposition home or self-care (01) ==
LOC: C.ER 17:39
DX: H60.91 Unspecified otitis externa, right ear (principal); H93.8X1 Other specified disorders of right ear

== ENCOUNTER 2018-11-13 11:25 | Emergency (ER) | payer OTHER ==
[2018-11-13 11:25] VITALS: BMI 26.6
[2018-11-13 11:40] VITALS: BP 111/68; PULSE 101; RESP 22; TEMP 99.7; O2SAT 97
[2018-11-13] MEDS ORDERED: Albuterol 0.083% Inhal Sol (2.5 mg/3 mL) UD INH STA (12:16)
[2018-11-13] MEDS ORDERED: Albuterol 0.083% Inhal Sol (2.5 mg/3 mL) UD ONE (12:28)
--- NOTE | 2018-11-13 12:30 | RAD ---
HISTORY: cough COMPARISON: Chest x-ray performed 08/13/18 TECHNIQUE: Chest PA and lateral FINDINGS: LUNGS: No focal consolidation. Please note that chest x-ray has limited sensitivity for the detection of pulmonary masses. PLEURA: No significant pleural effusion identified. No definite pneumothorax . CARDIOVASCULAR: Heart size appears within normal limits. No atherosclerotic calcification present. OSSEOUS STRUCTURES: No acute osseous abnormality identified. VISUALIZED UPPER ABDOMEN: Unremarkable. OTHER FINDINGS: None. IMPRESSION: No focal consolidation.
--- NOTE | 2018-11-13 12:42 | C.PDOC ---
History Of Present Illness 38 y/o male presents to the ED with complaints of fever, cough, and sore throat for the past 2 days. Cough is productive of green phlegm. He denies any nausea, vomiting, SOB, or abdominal pain. No known sick contacts. HPI: Influenza Time Seen by Provider: 11/13/18 12:00 Chief Complaint: Flu-like Symptoms Chief Complaint (Provider): Flu-like Symptoms History Per: Patient Exam Limitations: no limitations Onset/Duration Of Symptoms: Days Symptoms include: fever, sore throat, cough Sick Contacts (Context): None Past Medical History Reviewed: Historical Data, Nursing Documentation, Vital Signs Vital Signs: Last Vital Signs Temp 99.7 F H 11/13/18 11:37 Pulse 101 H 11/13/18 11:37 Resp 22 11/13/18 11:37 BP 111/68 11/13/18 11:37 Pulse Ox 97 11/13/18 11:37 - Medical History PMH: Asthma, Diverticulitis Denies: Colonic Polyps Family History: States: Unknown Family Hx - Social History Hx Alcohol Use: Yes Hx Substance Use: No - Immunization History Hx Tetanus Toxoid Vaccination: No Hx Influenza Vaccination: No Hx Pneumococcal Vaccination: No Review Of Systems Except As Marked, All Systems Reviewed And Found Negative. Constitutional: Positive for: Fever ENT: Positive for: Throat Pain Cardiovascular: Negative for: Chest Pain Respiratory: Positive for: Cough, Sputum. Negative for: Shortness of Breath Gastrointestinal: Negative for: Nausea, Vomiting, Diarrhea Physical Exam - Physical Exam Appears: Non-toxic, No Acute Distress Skin: Warm, Dry Head: Atraumatic, Normacephalic Eye(s): bilateral: Normal Inspection, PERRL, EOMI Ear(s): Bilateral: Normal (no erythema) Oral Mucosa: Moist Throat: Erythema (and tonsillar hypertrophy), No Exudate Neck: Normal ROM, Supple Lymphatic: No Adenopathy Chest: Tenderness (reproducible pain on palpation of chest wall) Cardiovascular: Rhythm Regular, No Murmur Respiratory: No Accessory Muscle Use, No Rales, No Rhonchi, Other (Coarse breath sounds bilaterally) Gastrointestinal/Abdominal: Soft, No Tenderness, No Distention Extremity: Bilateral: Atraumatic, Normal Color And Temperature Neurological/Psych: Oriented x3 Medical Decision Making Medical Decision Making: Impression: Flu-like symptoms Plan: - EKG - Chest x-ray - Albuterol nebulizer - 600 mg PO Motrin EKG: NSR at 100 bpm, normal intervals, normal axis, nonspecific T wave changes CXR shows no acute disease. Impression: Flu-like illness Patient will be discharged home with rx for tamiflu, pain medication, and nebulizer meds. Advised to follow up with PMD or the clinic. - ECG O2 Sat by Pulse Oximetry: 97 (RA) Pulse Ox Interpretation: Normal - Radiology X-Ray: Read By Radiologist X-Ray Interpretation: No Acute Disease Disposition Counseled Patient/Family Regarding: Studies Performed, Diagnosis, Need For Followup, Rx Given - Disposition Referrals: [facility] at [facility] [Outside] Disposition: HOME/ ROUTINE Disposition Time: 12:40 Condition: STABLE Additional Instructions: follow up with your doctor within 2 days call to make an appointment take medications as prescribed return to ER if symptoms worsens or progress Prescriptions: Albuterol 0.083% [Albuterol Sulfate 3 Ml] 3 ml IH Q6 PRN #50 neb PRN Reason: Cough And Congestion Albuterol Sulfate [Proventil Hfa] 2 puff IH QID #1 hfa.aer.ad Naproxen [Naprosyn] 500 mg PO BID PRN #16 tab PRN Reason: Pain, Moderate (4-7) Oseltamivir Phosphate [Tamiflu] 75 mg PO BID #10 capsule Instructions: Flu Forms: General Discharge Instructions, [facility] (Micronesian), Work Excuse - Clinical Impression Clinical Impression: Influenza-like illness - Scribe Statement The provider has reviewed the documentation as recorded by the Clara Atwood Provider Attestation: All medical record entries made by the Clara were at my direction and personally dictated by me. I have reviewed the chart and agree that the record accurately reflects my personal performance of the history, physical exam, medical decision making, and the department course for this patient. I have also personally directed, reviewed, and agree with the discharge instructions and disposition.
== END 2018-11-13 12:50 | disposition home or self-care (01) ==
LOC: C.ER 11:25
DX: J11.1 Influenza due to unidentified influenza virus with other respiratory manifestations (principal)

== ENCOUNTER 2019-03-20 08:49 | Emergency (ER) | payer OTHER ==
[2019-03-20 08:49] VITALS: BMI 26.6
[2019-03-20 09:08] VITALS: RESP 20; O2SAT 97
[2019-03-20] MEDS ORDERED: Iohexol 240 (50 ml) PO STA (09:14)
[2019-03-20] MEDS ORDERED: Sodium Chloride 0.9% 1,000 ML IV ONE (09:14)
[2019-03-20] MEDS ORDERED: Sodium Chloride 0.9% 1,000 ML ONE (09:23)
[2019-03-20] MEDS ORDERED: Iohexol 240 (50 ml) ONE (09:23)
[2019-03-20 09:37] LABS: BASO # 0.1 K/uL (0.0-0.2); BASO % 0.6 % (0.0-2.0); EOS # 0.2 K/uL (0.0-0.7); EOS % 1.5 % (0.0-4.0); HEMOGLOBIN 17.3 g/dL (12.0-18.0); LYMPH # 2.8 K/uL (1.0-4.3); LYMPH % 26.5 % (20.0-40.0); MEAN CELL VOLUME 87.6 fL (80.0-94.0); MEAN CORPUSCULAR HEMOGLOBIN 30.5 pg (27.0-31.0); MEAN CORPUSCULAR HGB CONC 34.8 g/dL (33.0-37.0); MEAN PLATELET VOLUME 7.7 fL (7.2-11.7); MONO # 0.7 K/uL (0.0-0.8); MONO % 6.5 % (0.0-10.0); NEUT # 6.9 K/uL (1.8-7.0); NEUT % 64.9 % (50.0-75.0); NRBC % 0.1 % (0.0-2.0); RBC 5.66 Mil/uL (4.40-5.90); RED CELL DISTRIBUTION WIDTH 12.9 % (11.5-14.5); WHITE BLOOD COUNT 10.6 K/uL (4.8-10.8)
--- NOTE | 2019-03-20 09:51 | C.PDOC ---
History Of Present Illness 38 yo male presents to the ER complaining of left side lower abdominal pain which began 3 days ago. Patient states that he has history of diverticulitis. Patient denies having fever,chills, nausea, vomiting, and diarrhea. Time Seen by Provider: 03/20/19 08:58 Chief Complaint (Nursing): Abdominal Pain History Per: Patient History/Exam Limitations: no limitations Current Symptoms Are (Timing): Still Present Severity: Moderate Location Of Pain/Discomfort: LLQ Radiation Of Pain To:: None Past Medical History Reviewed: Historical Data, Nursing Documentation, Vital Signs Vital Signs: Last Vital Signs Temp 98.2 F 03/20/19 09:04 Pulse 80 03/20/19 09:04 Resp 20 03/20/19 09:04 BP 139/87 03/20/19 09:04 Pulse Ox 97 03/20/19 09:04 Primary Care Provider: Non [facility] Provider, - Medical History PMH: Asthma, Diverticulitis Denies: Colonic Polyps Surgical History: No Surg Hx Family History: States: No Known Family Hx - Social History Hx Alcohol Use: Yes Hx Substance Use: No - Immunization History Hx Tetanus Toxoid Vaccination: Yes Hx Influenza Vaccination: No Hx Pneumococcal Vaccination: No Review Of Systems Except As Marked, All Systems Reviewed And Found Negative. Constitutional: Negative for: Fever, Chills Gastrointestinal: Positive for: Abdominal Pain. Negative for: Nausea, Vomiting Physical Exam - Physical Exam Appears: Non-toxic, No Acute Distress Skin: Normal Color, Warm, Dry Head: Atraumatic, Normacephalic Eye(s): bilateral: Normal Inspection Nose: Normal Oral Mucosa: Moist Neck: Supple Chest: Symmetrical Cardiovascular: Rhythm Regular Respiratory: Normal Breath Sounds, No Rales, No Rhonchi, No Wheezing Gastrointestinal/Abdominal: Soft, Tenderness (LLQ tenderness), No Guarding, No Rebound Extremity: Normal ROM Neurological/Psych: Oriented x3, Normal Speech ED Course And Treatment - Laboratory Results Result Diagrams: 03/20/19 09:34 03/20/19 09:34 Lab Interpretation: Normal O2 Sat by Pulse Oximetry: 97 (RA) Pulse Ox Interpretation: Normal - CT Scan/US CT-Abd & Pelv. Other Rad Studies (CT/US): Read By Radiologist, Radiology Report Reviewed CT/US Interpretation: Date of service: 03/20/2019. PROCEDURE: CT Abdomen and Pelvis with contrast. HISTORY: pain. COMPARISON: Abdomen pelvis CT with contrast 08/13/2018. TECHNIQUE: Following oral and intravenous contrast administration, a CT examination of the abdomen and pelvis was performed from the domes of the diaphragms to the symphysis pubis with reformatted datasets provided not only axial but also sagittal and coronal series. Contrast dose: Visipaque 320, 100 cc. Radiation dose: Total exam DLP = 674.66 mGy-cm. This CT exam was performed using one or more of the following dose reduction techniques: Automated exposure control, adjustment of the mA and/or kV according to patient size, and/or use of iterative reconstruction technique. FINDINGS: LOWER THORAX: Unremarkable. LIVER: Unremarkable. No gross lesion or ductal dilatation. GALLBLADDER AND BILE DUCTS: Unremarkable. PANCREAS: Unremarkable. No gross lesion or ductal dilatation. SPLEEN: Splenomegaly to 13.6 cm without focal mass. ADRENALS: Unremarkable. No mass. KIDNEYS AND URETERS: Unremarkable. No hydronephrosis. No solid mass. VASCULATURE: Unremarkable. No aortic aneurysm. No aortic atherosclerotic calcification or mural plaque present. BOWEL: There is thickening of the proximal to mid greater than distal sigmoid colon with occasional diverticula associated. Pericolic reactive changes are identified at the mid sigmoid colon without fluid collection or free air in a pattern compatible with acute or subacute diverticulitis. Underlying lesion not excluded. This is the same segment as previously if inflamed on 08/13/[address] Clinically correlate further. No abscess. No bowel obstruction appreciated. Small bowel loops appear unopacified predominantly and are unremarkable. The stomach is unremarkable, distended with oral contrast material moderately. APPENDIX: Normal appendix. PERITONEUM: No ascites. Local reaction related to sigmoid colon diverticular disease as described in bowel section. LYMPH NODES: Unremarkable. No enlarged lymph nodes. BLADDER: Unremarkable. REPRODUCTIVE: Unremarkable. BONES: No acute fracture. OTHER FINDINGS: None. IMPRESSION: Recurrent sigmoid diverticulitis interstitial the same segments previously affected on 08/13/[address] No evidence of abscess or bowel perforation at this time. Follow-up lower endoscopy is recommended to exclude underlying lesion. Mild splenomegaly noted. Progress Note: Labs, UA, and CT -Abd & Pelv. ordered.Patient treated with IV Fluids, Toradol IV, and Augmentin PO. On re-evaluation abdomen soft Reassessment Condition: Improved Disposition Doctor Will See Patient In The: Office Counseled Patient/Family Regarding: Studies Performed, Diagnosis, Need For Followup, Rx Given - Disposition Referrals: [facility] [Outside] [facility] [Outside] Disposition: HOME/ ROUTINE Disposition Time: 13:10 Condition: GOOD Additional Instructions: Follow up at clinic for further evaluation Return to ED if any increase symptoms Prescriptions: Amoxicillin/Clavulanate [Augmentin 875 MG-125 MG] 1 tab PO BID #14 tab Instructions: Diverticulitis Forms: edo (Nepali) - POA Present On Arrival: None - Clinical Impression Clinical Impression: Diverticulitis - PA / [employer] / Resident Statement MD/DO has reviewed & agrees with the documentation as recorded. - Scribe Statement The provider has reviewed the documentation as recorded by the Clara Dodd Provider Attestation All medical record entries made by the Clara were at my direction and personally dictated by me. I have reviewed the chart and agree that the record accurately reflects my personal performance of the history, physical exam, medical decision making, and the department course for this patient. I have also personally directed, reviewed, and agree with the discharge instructions and disposition.
[2019-03-20 10:07] LABS: ALB/GLOB RATIO 1.3 (1.0-2.1); ALBUMIN 4.5 g/dL (3.5-5.0); ALT/SGPT 57 U/L (21-72); AST/SGOT 40 U/L (17-59); BLOOD UREA NITROGEN 15 mg/dL (9-20); CALCIUM 9.6 mg/dl (8.6-10.4); GFR NON-AFRICAN AMERICAN > 60; LIPASE 178 U/L (23-300)
[2019-03-20] MEDS ORDERED: Iodixanol 320 MG/ML 100 ML BOTTLE IV ONE (10:32)
[2019-03-20 11:48] LABS: URINE BILIRUBIN NEGATIVE (NEGATIVE); URINE BLOOD NEGATIVE (NEGATIVE); URINE CLARITY Clear (Clear); URINE COLOR Yellow (YELLOW); URINE GLUCOSE (UA) NORMAL (Normal); URINE LEUKOCYTE ESTERASE TRACE Leu/uL (Negative); URINE PROTEIN NEGATIVE (NEGATIVE); URINE UROBILINOGEN NORMAL mg/dL (0.2-1.0)
--- NOTE | 2019-03-20 12:58 | CT ---
Date of service: 03/20/2019 PROCEDURE: CT Abdomen and Pelvis with contrast HISTORY: pain COMPARISON: Abdomen pelvis CT with contrast 08/13/2018. TECHNIQUE: Following oral and intravenous contrast administration, a CT examination of the abdomen and pelvis was performed from the domes of the diaphragms to the symphysis pubis with reformatted datasets provided not only axial but also sagittal and coronal series. Contrast dose: Visipaque 320, 100 cc Radiation dose: Total exam DLP = 674.66 mGy-cm. This CT exam was performed using one or more of the following dose reduction techniques: Automated exposure control, adjustment of the mA and/or kV according to patient size, and/or use of iterative reconstruction technique. FINDINGS: LOWER THORAX: Unremarkable. LIVER: Unremarkable. No gross lesion or ductal dilatation. GALLBLADDER AND BILE DUCTS: Unremarkable. PANCREAS: Unremarkable. No gross lesion or ductal dilatation. SPLEEN: Splenomegaly to 13.6 cm without focal mass. ADRENALS: Unremarkable. No mass. KIDNEYS AND URETERS: Unremarkable. No hydronephrosis. No solid mass. VASCULATURE: Unremarkable. No aortic aneurysm. No aortic atherosclerotic calcification or mural plaque present. BOWEL: There is thickening of the proximal to mid greater than distal sigmoid colon with occasional diverticula associated. Pericolic reactive changes are identified at the mid sigmoid colon without fluid collection or free air in a pattern compatible with acute or subacute diverticulitis. Underlying lesion not excluded. This is the same segment as previously if inflamed on 08/13/[address] Clinically correlate further. No abscess. No bowel obstruction appreciated. Small bowel loops appear unopacified predominantly and are unremarkable. The stomach is unremarkable, distended with oral contrast material moderately. APPENDIX: Normal appendix. PERITONEUM: No ascites. Local reaction related to sigmoid colon diverticular disease as described in bowel section. LYMPH NODES: Unremarkable. No enlarged lymph nodes. BLADDER: Unremarkable. REPRODUCTIVE: Unremarkable. BONES: No acute fracture. OTHER FINDINGS: None. IMPRESSION: Recurrent sigmoid diverticulitis interstitial the same segments previously affected on 08/13/[address] No evidence of abscess or bowel perforation at this time. Follow-up lower endoscopy is recommended to exclude underlying lesion. Mild splenomegaly noted.
[2019-03-20] MEDS ORDERED: Amoxicillin-Clav 875-125 mg Tab PO STA (12:59)
[2019-03-20 13:10] VITALS: BP 121/79; PULSE 72; TEMP 98.3
[2019-03-20] MEDS ORDERED: Amoxicillin-Clav 875-125 mg Tab PO ONE (13:12)
== END 2019-03-20 13:38 | disposition home or self-care (01) ==
LOC: C.ER 08:49
DX: K57.32 Diverticulitis of large intestine without perforation or abscess without bleeding (principal)
CPT/HCPCS: 74177; 80053; 81001; 83690; 85025; 96361; 96374; 99284; J1885; J7030; Q9966; Q9967